=== PATIENT | female | born 1975 | race Caucasian/White ===

== ENCOUNTER 2022-04-03 14:04 | Outpatient (CLI) | payer BC, SELFPAY | END 2022-04-03 14:05 | disposition home or self-care (01) | LOC: LKVREF 14:15 | PROVIDERS: PCP Physician Assistant Medical; Visit Provider Physician Assistant Medical | DX: E07.9 Disorder of thyroid, unspecified (principal); N95.1 Menopausal and female climacteric states; G35 Multiple sclerosis | CPT/HCPCS: 84443 ==

== ENCOUNTER 2023-04-16 15:59 | Outpatient (CLI) | payer BC, SELFPAY | END 2023-04-16 16:00 | disposition home or self-care (01) | LOC: LKVREF 15:59 | PROVIDERS: PCP Physician Assistant Medical; Visit Provider Physician Assistant Medical | DX: E07.9 Disorder of thyroid, unspecified (principal); E66.9 Obesity, unspecified | CPT/HCPCS: 84439; 84443 ==

== ENCOUNTER 2023-07-23 16:01 | Outpatient (CLI) | payer BC, SELFPAY | END 2023-07-23 16:02 | disposition home or self-care (01) | LOC: LKVREF 16:01 | PROVIDERS: PCP Physician Assistant Medical; Visit Provider Physician Assistant Medical | DX: E07.9 Disorder of thyroid, unspecified (principal); E66.9 Obesity, unspecified | CPT/HCPCS: 84443 ==

== ENCOUNTER 2024-06-01 15:41 | Outpatient (CLI) | payer BC, SELFPAY | END 2024-06-01 15:42 | disposition home or self-care (01) | LOC: NFLDREF 06-04 11:50 | PROVIDERS: PCP Physician Assistant Medical; Referring Provider Physician Assistant Medical; Visit Provider Physician Assistant Medical | DX: E07.9 Disorder of thyroid, unspecified (principal); E66.9 Obesity, unspecified; G35 Multiple sclerosis | CPT/HCPCS: 80053; 80061; 84443 ==

== ENCOUNTER 2024-09-27 15:15 | Outpatient (CLI) | payer BC, SELFPAY | END 2024-09-27 15:16 | disposition home or self-care (01) | LOC: NFLDREF 09-29 02:11 | PROVIDERS: PCP Physician Assistant Medical; Referring Provider Physician Assistant Medical; Visit Provider Physician Assistant Medical | DX: E07.9 Disorder of thyroid, unspecified (principal) | CPT/HCPCS: 84443 ==

== ENCOUNTER 2025-05-03 15:25 | Outpatient (CLI) | payer BC, SELFPAY | END 2025-05-03 15:26 | disposition home or self-care (01) | LOC: NFLDREF 05-09 20:20 | PROVIDERS: PCP Physician Assistant Medical; Referring Provider Physician Assistant Medical; Visit Provider Physician Assistant Medical | DX: Z13.9 Encounter for screening, unspecified (principal); E78.5 Hyperlipidemia, unspecified; E07.9 Disorder of thyroid, unspecified | CPT/HCPCS: 80053; 80061; 82306; 82607; 84443 ==

== ENCOUNTER 2025-05-12 16:30 | Outpatient (CLI) | payer BC, SELFPAY ==
[2025-05-12 23:24] LABS: Chlamydia DNA Amplified* NOT DETECTED (No Detected); GC DNA Amplified* NOT DETECTED (No Detected)
[2025-05-14 20:03] LABS: HPV Source Cervix
[2025-05-17 10:08] LABS: Pap Test Digital Imaging Done
== END 2025-05-12 16:31 | disposition home or self-care (01) ==
PROVIDERS: PCP Physician Assistant Medical; Visit Provider Physician Assistant Medical
DX: Z00.00 Encounter for general adult medical examination without abnormal findings (principal)
CPT/HCPCS: 87491; 87591; 87624; 87625; 88141; 88142; 88175